=== PATIENT | female | born 1975 | race Caucasian/White ===

== ENCOUNTER 2022-01-04 13:45 | Outpatient (CLI) | payer BC | END 2022-01-04 13:46 | disposition home or self-care (01) | LOC: CSHMAMMO 13:45 | PROVIDERS: ATTEND Family Medicine Sports Medicine | DX: Z12.31 Encounter for screening mammogram for malignant neoplasm of breast (principal) | CPT/HCPCS: 77063; 77067 ==

== ENCOUNTER 2023-05-16 13:49 | Outpatient (CLI) | payer BC | END 2023-05-16 13:50 | disposition home or self-care (01) | LOC: CSHMAMMO 13:49 | PROVIDERS: ATTEND Obstetrics & Gynecology | DX: Z12.31 Encounter for screening mammogram for malignant neoplasm of breast (principal) | CPT/HCPCS: 77063; 77067 ==

== ENCOUNTER 2023-06-06 06:02 | Day surgery (SDC) | payer BC ==
[2023-06-02 15:06] VITALS: BMI 32.4
[2023-06-06] MEDS ORDERED: PROPOFOL 40 ML ONE (07:12)
[2023-06-06] MEDS ORDERED: PROPOFOL 20 ML ONE (07:12)
[2023-06-06] MEDS ORDERED: Midazolam HCl 2 mg/2 ml Vial ONE (07:12)
== END 2023-06-06 09:09 | disposition home or self-care (01) ==
LOC: CSHSDC 06:02
PROVIDERS: ATTEND Internal Medicine Gastroenterology
PROC: 0DBH8ZZ Excision of Cecum, Via Natural or Artificial Opening Endoscopic (ICD-10-PCS; principal; 2023-06-06)
PROC: 0DBP8ZZ Excision of Rectum, Via Natural or Artificial Opening Endoscopic (ICD-10-PCS; principal; 2023-06-06)
DX: Z12.11 Encounter for screening for malignant neoplasm of colon (principal); K62.1 Rectal polyp; K57.30 Diverticulosis of large intestine without perforation or abscess without bleeding; K21.9 Gastro-esophageal reflux disease without esophagitis; E03.9 Hypothyroidism, unspecified; F17.200 Nicotine dependence, unspecified, uncomplicated; Z90.49 Acquired absence of other specified parts of digestive tract; Z90.710 Acquired absence of both cervix and uterus
CPT/HCPCS: 88305; J2250; J2704

== ENCOUNTER 2024-05-21 14:30 | Outpatient (CLI) | payer BC | END 2024-05-21 14:31 | disposition home or self-care (01) | LOC: CSHMAMMO 14:30 | PROVIDERS: ATTEND Obstetrics & Gynecology | DX: Z12.31 Encounter for screening mammogram for malignant neoplasm of breast (principal) | CPT/HCPCS: 77063; 77067 ==

== ENCOUNTER 2025-07-09 12:12 | Outpatient (CLI) | payer BC | END 2025-07-09 12:13 | disposition home or self-care (01) | LOC: CSHMAMMO 12:12 | PROVIDERS: ATTEND Obstetrics & Gynecology | DX: Z12.31 Encounter for screening mammogram for malignant neoplasm of breast (principal) | CPT/HCPCS: 77063; 77067 ==